=== PATIENT | female | born 1980 | race African-American/Black ===

== ENCOUNTER 2018-08-08 13:20 | Outpatient (CLI) | payer OTHER ==
--- NOTE | 2018-08-08 15:19 | ULT ---
PELVIC ULTRASOUND: 08/08/2018 HISTORY: Pelvic pain. COMPARISON: 09/07/2013 FINDINGS: The uterus is enlarged and diffusely heterogeneous in appearance. The uterus is larger in size sai red to a study in 2013. The uterus measures 18.1 cm x 7.4 cm x 10 cm. The endometrial stripe measur es 1.4 cm in thickness, which is at the upper limits of normal but within normal limits in a normal m enstruating female patient. There is suggestion of a tiny amount of free fluid within the endometria l canal. There are scattered more discrete hypoechoic masses within the uterus, largest seen within the cracking still operator ior body of the uterus, measuring 5.3 cm. There are at least two additional masses within the body o f the uterus, measuring 4.4 cm and 2.5 cm, respectively, in maximal dimensions. The ovaries are grossly normal in appearance for transabdominal imaging. The right ovary measures 2. 9 cm x 2.4 cm x 2 cm with the left ovary measuring 2.7 cm x 3.7 cm x 2.6 cm. Doppler evaluation of e ach ovary with spectral analysis and color-flow evaluation demonstrates venous flow in the bilateral ovaries with definite arterial flow in the left ovary and suggestion of arterial flow within the righ t ovary. No free fluid is seen in the cul-de-sac. IMPRESSION: 1. Enlarged, heterogeneous uterus with multiple uterine fibroids visualized. The largest uterine fi broid measures 5.3 cm. 2. A tiny amount of fluid within the endometrial canal. Endometrial canal thickness is 1.4 cm. 3. Grossly normal appearing bilateral ovaries. POS: [facility]
== END 2018-08-08 13:21 | disposition home or self-care (01) ==
LOC: SCSULT 13:20
PROVIDERS: ATTEND Nurse Practitioner Family
DX: R10.2 Pelvic and perineal pain (principal); D25.9 Leiomyoma of uterus, unspecified; R93.89 Abnormal findings on diagnostic imaging of other specified body structures
CPT/HCPCS: 76856; 93976

== ENCOUNTER 2018-11-25 10:37 | Outpatient (CLI) | payer OTHER ==
[2018-11-25 12:15] LABS: Hemoglobin 13.2 g/dL (12.0-16.0); Mean Corpuscular HGB CONC 33.5 g/dL (32.0-36.0); Mean Corpuscular Hemoglobin 30.8 pg (27.0-31.0); Mean Corpuscular Volume 91.9 fL (78.0-98.0); Mean Platelet Volume 7.5 fL (7.4-10.4); Platelet Count 260 thou/uL (130-400); RBC Distribution Width 11.4 % (11.5-14.5); Red Blood Cell (RBC) Count 4.28 mill/uL (4.20-5.40); White Blood Cell (WBC) Count 6.9 thou/uL (4.8-10.8)
[2018-11-25 12:23] LABS: BHCG - Serum Negative (NEGATIVE); Pregs Control Background? CLEAR/WHITE (CLR/WHITE); Pregs Control Bar Appear? YES (CONTROL BAR)
[2018-11-25 12:34] LABS: Anion Gap 11 mmol/L (10-20); BUN (Urea Nitrogen) 17 mg/dL (7.0-18.7); Calc. Creatinine Clearance 0 mL/min (70-130); Calcium 10.1 mg/dL (7.8-10.44); Carbon Dioxide 28 mmol/L (22-29); Chloride 102 mmol/L (98-107); Estimated GFR-MDRD 55; Glucose 113 mg/dL (70-105); Potassium 4.2 mmol/L (3.5-5.1); Sodium 137 mmol/L (136-145)
== END 2018-11-25 10:38 | disposition home or self-care (01) ==
LOC: LABBT 10:37
PROVIDERS: ATTEND Student in an Organized Health Care Education/Training Program
DX: Z01.818 Encounter for other preprocedural examination (principal); N92.0 Excessive and frequent menstruation with regular cycle; D25.9 Leiomyoma of uterus, unspecified
CPT/HCPCS: 80048; 84703; 85027; 86850; 86900; 86901; 93005; 93010

== ENCOUNTER 2019-10-06 07:09 | Outpatient (CLI) | payer OTHER | END 2019-10-06 07:10 | disposition home or self-care (01) | LOC: LABBT 07:09 | PROVIDERS: ATTEND Student in an Organized Health Care Education/Training Program | DX: Z01.810 Encounter for preprocedural cardiovascular examination (principal); D25.9 Leiomyoma of uterus, unspecified; N92.0 Excessive and frequent menstruation with regular cycle | CPT/HCPCS: 93005; 93010 ==

== ENCOUNTER 2019-10-09 08:13 | Day surgery (SDC) | payer OTHER ==
[2019-10-06 16:39] LABS: Hemoglobin 13.8 g/dL (12.0-16.0); Mean Corpuscular HGB CONC 32.9 g/dL (32.0-36.0); Mean Corpuscular Hemoglobin 30.2 pg (27.0-31.0); Mean Corpuscular Volume 91.9 fL (78.0-98.0); Mean Platelet Volume 7.4 fL (7.4-10.4); Platelet Count 275 thou/uL (130-400); RBC Distribution Width 11.5 % (11.5-14.5); Red Blood Cell (RBC) Count 4.57 mill/uL (4.20-5.40)
[2019-10-06 16:43] LABS: BHCG - Serum Negative (NEGATIVE); Pregs Control Background? CLEAR/WHITE (CLR/WHITE); Pregs Control Bar Appear? YES (CONTROL BAR)
[2019-10-06 16:59] VITALS: BMI 28.5
[2019-10-06 17:03] LABS: Anion Gap 14 mmol/L (10-20); BUN (Urea Nitrogen) 16 mg/dL (7.0-18.7); Calc. Creatinine Clearance 0 mL/min (70-130); Calcium 9.3 mg/dL (7.8-10.44); Carbon Dioxide 22 mmol/L (22-29); Chloride 103 mmol/L (98-107); Estimated GFR-MDRD 83; Glucose 95 mg/dL (70-105); Potassium 3.9 mmol/L (3.5-5.1); Sodium 135 mmol/L (136-145)
[2019-10-09] MEDS ORDERED: CeleCOXIB 100 MG CAP ONE (08:54)
[2019-10-09] MEDS ORDERED: Gabapentin 300 MG CAP ONE (08:54)
[2019-10-09] MEDS ORDERED: Famotidine/PF 20 mg/2ml Vial ONE (08:54)
[2019-10-09] MEDS ORDERED: Bupivacaine PF 0.5% 30 ML VIAL ONE (09:37)
[2019-10-09] MEDS ORDERED: Lidocaine 1% w/Epinephrine 1:100K 20 ML VIAL ONE (09:37)
[2019-10-09] MEDS ORDERED: Fentanyl 100 MCG/2 ML VIAL ONE ×3 (09:39→13:37)
[2019-10-09] MEDS ORDERED: HYDROmorphone 0.5 MG/0.5 ML SYRINGE ONE (09:39)
[2019-10-09] MEDS ORDERED: Rocuronium Bromide 10 MG/ML (10ML VIAL) ONE (10:28)
[2019-10-09] MEDS ORDERED: Dexamethasone 20 MG/5 ML VIAL ONE (10:28)
[2019-10-09] MEDS ORDERED: PROPOFOL 200 MG/20 ML VIAL ONE (10:28)
[2019-10-09] MEDS ORDERED: Glycopyrrolate 0.2 MG/ML 5 ML SYRINGE ONE (10:28)
[2019-10-09] MEDS ORDERED: Lidocaine 1% PF 5 ML VIAL ONE (10:28)
[2019-10-09] MEDS ORDERED: EPHEDRINE 25 MG/5 ML SYRINGE ONE (10:28)
[2019-10-09] MEDS ORDERED: Ondansetron PF 4 MG/2 ML Vial ONE (10:28)
[2019-10-09] MEDS ORDERED: Metoprolol Tartrate 5 MG/5 ML VIAL IVP PRN (12:47)
[2019-10-09] MEDS ORDERED: traMADol HCl 50 MG TAB PO PRN (12:47)
[2019-10-09] MEDS ORDERED: Ondansetron PF 4 MG/2 ML Vial IVP PRN (12:47)
[2019-10-09] MEDS ORDERED: Zolpidem Tartrate 5 MG TAB PO PRN (12:47)
[2019-10-09] MEDS ORDERED: Promethazine HCl 25 MG/ML VIAL IM PRN (12:47)
[2019-10-09] MEDS ORDERED: Acetaminophen 325 MG TAB PO PRN (12:47)
[2019-10-09] MEDS ORDERED: Bisacodyl 10 MG SUPP PR PRN (12:47)
[2019-10-09] MEDS ORDERED: diphenhydrAMINE 25 MG CAP PO PRN (12:47)
[2019-10-09] MEDS ORDERED: Fentanyl 100 MCG/2 ML VIAL SLOW IVP PRN (12:47)
[2019-10-09] MEDS ORDERED: Meperidine HCl/PF 25 MG/ML VIAL SLOW IVP PRN (12:54)
[2019-10-09] MEDS ORDERED: Promethazine HCl 25 MG/ML VIAL SLOW IVP PRN (12:54)
[2019-10-09] MEDS ORDERED: HYDROmorphone 2 MG/ML VIAL SLOW IVP PRN (12:54)
[2019-10-09] MEDS ORDERED: Sodium Chloride 0.9% 1,000 ML IV SCH (13:00)
[2019-10-09] MEDS: Ketorolac Tromethamine 30 MG/ML VIAL IVP SCH ×2 (15:39→23:57)
[2019-10-09] MEDS: traMADol HCl 50 MG TAB PO PRN (18:58)
[2019-10-09] MEDS ORDERED: Venlafaxine HCl XR 75 MG CAP PO SCH (19:00)
[2019-10-09] MEDS: Simethicone Chewable 80 MG TAB PO PRN ×2 (19:01→20:00)
[2019-10-09] MEDS: Docusate Calcium (SURFAK) 240 MG CAP PO SCH (23:57)
[2019-10-10] MEDS: traMADol HCl 50 MG TAB PO PRN ×2 (06:05→11:04)
[2019-10-10] MEDS: Ketorolac Tromethamine 30 MG/ML VIAL IVP SCH (06:06)
[2019-10-10 06:34] LABS: Hemoglobin 10.6 g/dL (12.0-16.0); Mean Corpuscular HGB CONC 32.7 g/dL (32.0-36.0); Mean Corpuscular Hemoglobin 30.4 pg (27.0-31.0); Mean Corpuscular Volume 92.9 fL (78.0-98.0); Platelet Count 191 thou/uL (130-400); RBC Distribution Width 11.5 % (11.5-14.5)
[2019-10-10 08:22] VITALS: BP 127/73; TEMP 98.8
[2019-10-10] MEDS ORDERED: Lisinopril/Hydrochlorothiazide 10 mg/12.5 mg Tablet PO SCH (09:00)
--- NOTE | 2019-10-10 09:39 | PDOC.EVN ---
Event Note - Event Note Event Note: POD1 S: No complaints, pain controlled, tolerating reg diet, voiding and ambulating O: VSSAF NAD unlabored breathing s/appttp/nd/inc c/d/i No e/c/c Hgb 10.5 A) POD1 s/p RATLH bilat salpingectomy with extracorporeal morcellation P) Doing well postop, met all milestones Mild anemia due to surgical blood loss, asx, will take MVI with iron postop Postop care and precautions discussed Path pending FU 2 weeks.
[2019-10-10] MEDS: Docusate Calcium (SURFAK) 240 MG CAP PO SCH (10:56)
[2019-10-10] MEDS: Simethicone Chewable 80 MG TAB PO PRN (11:04)
--- NOTE | 2019-10-10 14:37 | OP ---
DATE OF PROCEDURE: 10/09/2019 PREOPERATIVE DIAGNOSES: 1. Uterine fibroids. 2. Menorrhagia. 3. Pelvic pain. POSTOPERATIVE DIAGNOSES: 1. Uterine fibroids. 2. Menorrhagia. 3. Pelvic pain. PROCEDURES PERFORMED: Robotic-assisted total laparoscopic hysterectomy and bilateral salpingectomy with extracorporeal morcellation. ANESTHESIA: General endotracheal. COTTON PICKING MACHINE OPERATOR SURGEON: Benjamin Lewis DO, MS ESTIMATED BLOOD LOSS: 150 mL. IVF: 1600 mL of crystalloid. URINE OUTPUT: 110 mL of clear urine. COMPLICATIONS: None. DRAINS: Wan catheter. PATHOLOGY: Uterus, cervix, and bilateral fallopian tubes. FINDINGS: Enlarged approximately 20-week size multifibroid uterus sounded to 16 cm. Cervix was normal appearing. Ovaries were normal appearing bilaterally and fallopian tubes were also normal. The ureters were visible in the pelvic sidewall. There were dissected out in the medial leaf of the broad ligament and directly observed during the case. The ureter on the right side did course closer to underneath the uterine artery approximately 1.5 cm away from the internal cervical os. This was visible during the case and very carefully avoided. The bladder was backfilled at the conclusion of the procedure and no inadvertent bladder injury. Low pressure check revealed excellent hemostasis and there were no retained instruments in the vagina. DESCRIPTION OF PROCEDURE: The patient was taken to the operating room, where general anesthesia was obtained without difficulty. The patient was prepped and draped in a sterile fashion in dorsal lithotomy position. A Wan catheter was placed in the bladder. A speculum was placed in the vagina. The anterior lip of the cervix was grasped with a single-tooth tenaculum. The cervix was then dilated with Festus dilators, and the uterus was sounded to 16 cm. The CORAZON manipulator was assembled with a 12 cm tip and a 4 cm colpotomizer ring. The CORAZON was inserted into the uterus. Colpotomizer ring was advanced to fit snugly around the cervix. Balloons were inflated. Instruments were removed. Attention was turned to the abdomen. Mixture of 0.5% Marcaine plain and 1% lidocaine with epinephrine was infiltrated approximately 2 fingerbreadths above the umbilicus. A 3 cm skin incision was made vertically. The subcutaneous tissue was grasped with Nemo's bilaterally, and the subcutaneous tissue was incised sequentially with a knife. The fascia was then grasped with 2 Nemo's and incised sharply with the Edwards's and extended with the Edwards's as well, tenting, ensuring no underlying bowel was adherent. The Mini Mayo was then placed into the incision and cinched down. The medium-sized Mayo extraction bag was placed into the upper abdomen after being secured with Vicryl ties on each side. The GelPOINT with the 12 mm camera trocar was placed, affixed to the Mini Mayo and pneumoperitoneum was obtained. The camera was inserted into the abdomen. Trendelenburg was obtained. Uterus was very enlarged and deviated more to the right side, but mobile and posteriorly was visible. Right and left lower quadrant 8 mm robotic trocars were placed under direct visualization after infiltrating with anesthetic. A right upper quadrant psychological assistant 11 mm port was also placed under direct visualization after infiltrating with anesthetic. The robot was then docked. The right robotic arm contained monopolar scissors, left robotic arm contained a fenestrated bipolar. At that time, surgeon console then took control. The left round ligament was visible immediately. This was cauterized in the midportion and incised with the scissors. Some of the anterior leaf of the broad ligament was incised as this was also readily visible, and then the meso-ovarian was incised carefully superficially toward the utero-ovarian. At that time, the fimbriated edge of the fallopian tube was grasped and elevated. The mesosalpinx was cauterized and incised, and the fallopian tube was then removed out of the abdomen. The ovary was elevated. The utero-ovarian was identified on the left side and this was cauterized multiple times with the fenestrated and carefully incised with the scissors, performing cautery after each incision to march down the mesovarium until the incision of the round ligament was met. At this time, additional incision was made on the anterior leaf of the broad ligament on the left side down to the bladder flap. There were adhesions of the bladder to the lower uterine segment. Some of this was layered out at this time. At that time, attention was turned to the right side, where the right round ligament was also visible readily. This was cauterized in the midportion and incised. The anterior leaf on that side was incised down to the bladder flap, and the fallopian tube was identified. Since there was a large fibroid off the right side of the uterus, the tenaculum was used to grasp the fibroid and to deviate the uterus over to the left side in order to see the left adnexa. The fallopian tube was then cauterized and incised and removed out of the abdomen, and the utero-ovarian was also identified and incised. There was some bleeding off the ovarian pedicle on the right. However, with careful cautery in identifying ureteral location, this was hemostatic with the fenestrated. There was also some oozing off the lateral part of the right side of the uterus. Hemostasis was able to be achieved with the fenestrated. At that time, the uterus was anteverted with the use of the tenaculum anteverting the uterus. The posterior leaf was incised. The ureter was identified on the right side in the lateral pelvic sidewall, and the retroperitoneum was carefully dissected off the uterine vessels down to the level of the uterosacral, and the posterior leaf of the broad ligament was opened up even laterally to identify directly the ureters course as it coursed underneath the uterine artery, which again was high and about a centimeter and half away from the internal cervical os. At this time, attention was turned to the anterior cervix. The tenaculum was used to grasp anteriorly and retract the uterus down, and the bladder flap was created by layering out these bladder adhesions. The bladder was also backfilled during this time to note the limitations of the bladder mucosa. There was more scar that was adherent to the lower uterine segment than actual bladder mucosa. This was carefully layered out by undermining either with the scissors were fenestrated and then incising with the scissors. Some of this peeled away easily, and the pubocervical fascia was identified and this blunt dissection was performed once the pubocervical fascia was identified. Down below the level of the colpotomizer ring, hemostasis was achieved with the bladder pillars with the fenestrated. At this time, attention was turned to the left side, where the posterior leaf was also identified and dropped down to the uterosacral. The ureter was identified on the left side and then dissected out retroperitoneally to identify its course underneath the uterine artery and this was more distal than the contralateral side. The uterine vessels were skeletonized and cauterized as well just above the level of the internal cervical os. Colpotomy was then performed on the left side. The vessels were initially incised just above the level of the internal cervical os, and then the vascular pedicle was dissected off the lateral vaginal apex with scissors in order to drop the ureter away and allow for a pedicle to achieve hemostasis if needed. The colpotomy was performed on the left apex, and then anteriorly the right-sided vessels were cauterized multiple times. This was above the level of the internal cervical os. The vessels were also incised above the level of the internal cervical os and taken down the side of the uterus, and then the pedicle was again dissected off using scissors on cautery laterally below even the colpotomizer ring. The ureter was identified during this time and ensured to not have effect from lateral thermal spread during the cautery of this and hemostasis was excellent at this pedicle. The colpotomy on the right apex was performed and then finalized posteriorly. At that time, the manipulator was removed out of the vagina and uterus, and the uterus was placed into the upper abdomen. The cuff was copiously irrigated and suctioned. Hemostasis was achieved of the cuff. The scissors were traded out for the needle delivery motorcycle driver. A 2-0 STRATAFIX barbed suture was used to close the cuff in a running fashion and run back for a second layer. The needle was cut and removed out of the abdomen. The cuff was again copiously irrigated, and hemostasis was noted on low pressure check. The ureters were again visualized bilaterally and vermiculating. The bladder was backfilled and no inadvertent injury to the bladder had occurred, and at that time, Tisseel was placed over the pedicles and vaginal cuff. Then, the Mayo bag was brought down into the pelvis. The securing ties of Vicryl were cut and removed out of the abdomen. The uterus was placed into the bag and then secured and brought out of the Mini GelPOINT. At this time, the robot was undocked and the instruments were removed out of the abdomen and pneumoperitoneum was released. The bag was brought out of the Mini Mayo at the umbilicus. The specimen was grasped with a Ratna clamps, and the specimen was morcellated and contained within the bag using a C incision technique. This took approximately 30 minutes additional time and the weight of the specimen after complete morcellation was 945 g. The bag was then removed out of the abdomen as well as the Mayo. The incision was irrigated and suctioned. The fascia was grasped with a Nemo clamp and closed carefully with a 0 Vicryl in a running fashion. The skin was closed with a 4-0 Monocryl in a subcuticular fashion. Dermabond was applied. The vaginal cuff was checked and noted to be hemostatic with excellent closure, and all instruments were removed out of the vagina. The patient tolerated the procedure well. Sponge, lap, and needle counts were correct x2. The patient was taken to recovery room in stable condition. The patient received Ancef 2 g prior to the procedure. Job ID: [id number]
[2019-10-15] MEDS ORDERED: Ibuprofen 800 MG TAB PO SCH (06:00)
== END 2019-10-10 10:40 | disposition home or self-care (01) ==
LOC: SDC 08:13 → 3SE 14:50 → EDSTATUS 15:30 → SDC 10-10 10:40
PROVIDERS: ATTEND Student in an Organized Health Care Education/Training Program
PROC: 0UT94ZZ Resection of Uterus, Percutaneous Endoscopic Approach (ICD-10-PCS; principal; 2019-10-10)
PROC: 0UT74ZZ Resection of Bilateral Fallopian Tubes, Percutaneous Endoscopic Approach (ICD-10-PCS; principal; 2019-10-10)
DX: D25.9 Leiomyoma of uterus, unspecified (principal); N72 Inflammatory disease of cervix uteri; I10 Essential (primary) hypertension; Z79.899 Other long term (current) drug therapy; Z87.891 Personal history of nicotine dependence; Z88.5 Allergy status to narcotic agent; Z88.6 Allergy status to analgesic agent
CPT/HCPCS: 36415; 80048; 84703; 85027; 86850; 86900; 86901; 88307; J0690; J1100; J1170; J1885; J2001; J2405; J2704; J3010; S0020; S0028

== ENCOUNTER 2021-09-26 22:28 | Emergency (ER) | payer OTHER ==
[2021-09-26] MEDS ORDERED: Ketorolac Tromethamine 30 MG/ML VIAL ONE (23:58)
== END 2021-09-27 00:26 | disposition home or self-care (01) ==
LOC: ERS 22:28
DX: M25.561 Pain in right knee (principal); I10 Essential (primary) hypertension; D25.9 Leiomyoma of uterus, unspecified; Z87.891 Personal history of nicotine dependence; Z79.899 Other long term (current) drug therapy
CPT/HCPCS: 96372; J1885

== ENCOUNTER 2021-12-22 13:18 | Emergency (ER) | payer OTHER ==
[2021-12-22] MEDS ORDERED: Ketorolac Tromethamine 30 MG/ML VIAL ONE (13:55)
[2021-12-22 14:02] LABS: #Eosinphils 0.1 thou/uL (0.0-0.7); #Lymphocytes 1.9 thou/uL (1.20-3.40); #Monocytes 0.3 thou/uL (0.11-0.59); #Neutrophils 1.9 thou/uL (1.40-6.50); %Basophils 0.9 % (0.0-1.0); %Eosinophils 1.3 % (0.0-10.0); %Lymphocytes 44.7 % (21.0-51.0); %Monocytes 8.2 % (0.0-10.0); %Neutrophils 44.9 % (42.0-75.0); Hemoglobin 13.4 g/dL (12.0-16.0); Mean Corpuscular HGB CONC 32.6 g/dL (32.0-36.0); Mean Corpuscular Hemoglobin 29.5 pg (27.0-31.0); Mean Corpuscular Volume 90.4 fL (78.0-98.0); Mean Platelet Volume 7.4 fL (7.4-10.4); Platelet Count 236 thou/uL (130-400); RBC Distribution Width 11.2 % (11.5-14.5); Red Blood Cell (RBC) Count 4.55 mill/uL (4.20-5.40); White Blood Cell (WBC) Count 4.1 thou/uL (4.8-10.8)
[2021-12-22 14:13] LABS: ALT (SGPT) 36 U/L (8-55); AST (SGOT) 26 U/L (5-34); Albumin 3.8 g/dL (3.5-5.0); Alkaline Phosphatase 45 U/L (40-110); Anion Gap 13 mmol/L (10-20); BUN (Urea Nitrogen) 14 mg/dL (7.0-18.7); Bilirubin, Total 0.2 mg/dL (0.2-1.2); Calc. Creatinine Clearance 0 mL/min (70-130); Calcium 8.7 mg/dL (7.8-10.44); Carbon Dioxide 21 mmol/L (22-29); Chloride 107 mmol/L (98-107); Globulin 3.3 g/dL (2.4-3.5); Glucose 98 mg/dL (70-105); Lipase 10 U/L (8-78); Potassium 4.2 mmol/L (3.5-5.1); Protein, Total 7.1 g/dL (6.0-8.3); Sodium 137 mmol/L (136-145)
[2021-12-22 14:21] LABS: Bilirubin Negative (Negative); Blood, Urine Negative (Negative); Clarity Clear (Clear); Glucose, Urine (Dipstick) Normal (Negative); Ketone, Urine Negative (Negative); Leukocyte Negative Leu/uL (Negative); Nitrite Negative (Negative); Protein, Urine (Dipstick) 30 mg/dL (Neg-Trace); RBC/HPF 0-3 HPF (0-3); Specific Gravity, Urine 1.028 (1.002-1.036); Urobilinogen Normal mg/dL (Less than 2); WBC/HPF 0-3 HPF (0-3)
[2021-12-22 14:35] LABS: Bacteria/HPF Rare-Few HPF (None Seen)
== END 2021-12-22 15:15 | disposition home or self-care (01) ==
LOC: ERS 13:18
DX: R10.31 Right lower quadrant pain (principal); I10 Essential (primary) hypertension; Z87.891 Personal history of nicotine dependence
CPT/HCPCS: 74177; 80053; 81003; 81015; 83690; 85025; 96374; J1885

== ENCOUNTER 2023-02-16 18:43 | Emergency (ER) | payer OTHER, SELFPAY ==
[2023-02-16] MEDS ORDERED: Diazepam 5 MG TAB ONE (20:49)
[2023-02-16] MEDS ORDERED: Ketorolac Tromethamine 30 MG/ML VIAL ONE (20:49)
[2023-02-16] MEDS ORDERED: methylPREDNISolone Sod Succ/PF 125 MG/2 ML VIAL ONE (20:49)
== END 2023-02-16 22:17 | disposition home or self-care (01) ==
LOC: ERS 18:43
DX: S80.812A Abrasion, left lower leg, initial encounter (principal); S80.811A Abrasion, right lower leg, initial encounter; M25.511 Pain in right shoulder; R51.9 Headache, unspecified; M54.2 Cervicalgia; I10 Essential (primary) hypertension; Z87.891 Personal history of nicotine dependence; V44.5XXA Car driver injured in collision with heavy transport vehicle or bus in traffic accident, initial encounter
CPT/HCPCS: 70450; 72040; 96372; J1885; J2930